=== PATIENT | female | born 1935 | race Caucasian/White ===

== ENCOUNTER 2021-10-28 12:06 | Emergency (ER) | payer MEDICARE, OTHER ==
[~2021-10-28] VITALS: Ht 172.7 cm; Wt 77.1 kg
[2021-10-28 12:42] LABS: BASOPHILS % (AUTO) 0 % (0-10); EOSINOPHILS % (AUTO) 0 % (0-10); HEMATOCRIT 49 % (35-52); HEMOGLOBIN 15.5 g/dL (11.5-16.0); LYMPHOCYTES % (AUTO) 25 % (12-44); MEAN CORPUSCULAR HEMOGLOBIN 27 pg (25-34); MEAN CORPUSCULAR HGB CONC 32 g/dL (32-36); MEAN CORPUSCULAR VOLUME 84 fL (80-99); MONOCYTES # (AUTO) 0.4 10^3/uL (0.0-1.0); MONOCYTES % (AUTO) 10 % (0-12); NEUTROPHILS # (AUTO) 2.6 10^3/uL (1.8-7.8); NEUTROPHILS % (AUTO) 63 % (42-75); PLATELET COUNT 265 10^3/uL (130-400); WHITE BLOOD COUNT 4.1 10^3/uL (4.3-11.0)
--- NOTE | 2021-10-28 12:43 | ED General ---
General Stated Complaint: NOT TALKING X 1 WK/WEAKNESS/COUGH Source of Information: Patient Exam Limitations: No Limitations History of Present Illness Date Seen by Provider: Oct 28, 2021 Time Seen by Provider: 12:28 Initial Comments Here with report of weakness, multiple falls over the last couple of weeks not talking as much to her granddaughter is difficult. She lives with her son who has advanced cancer and is on hospice. Her son is unable to care for her anymore due to this. Patient is not eating or drinking well. She is talking with the nurse and answering questions but seems confused. She does seem very weak. Patient is very poor historian due to current condition. Timing/Duration: Other (2 weeks) Severity: Moderate Associated Systoms: No Nausea/Vomiting, No Weakness Allergies and Home Medications Allergies Coded Allergies: No Known Drug Allergies (Unverified , 10/28/21) Patient Home Medication List Home Medication List Reviewed: Yes Review of Systems Review of Systems Constitutional: see HPI; No chills, No fever EENTM: No nose congestion, No throat pain Respiratory: cough, short of breath Skin: change in color; No lesions Psychiatric/Neurological: Weakness Unable to complete review of systems due to altered mental status. All Other Systems Reviewed Negative Unless Noted: Yes Past Kfjyahr-Evzoac-Lqqmpp Hx Patient Social History Tobacco Use?: No Substance use?: No Alcohol Use?: No Past Medical History Surgeries: No Family denies other medical problems and she is on no medicine and does not follow with a doctor. Physical Exam-Suspected Sepsis Physical Exam Vital Signs Vital Signs - First Documented 10/28/21 12:15 Temp 36.2 Pulse 84 Resp 16 B/P (MAP) 132/71 (91) Pulse Ox 94 O2 Delivery Room Air Capillary Refill : Height, Weight, BMI Height: '" Weight: lbs. oz. kg; BMI Method: General Appearance: No Apparent Distress, Other (Weak appearing) HEENT: PERRL/EOMI, Pharynx Normal, Other (Bruising to the right cheek and forehead) Neck: Non Tender, Supple Respiratory: No Accessory Muscle Use, Crackles (Bilateral bases) Cardiovascular: Regular Rate, Rhythm, No Murmur Gastrointestinal: Non Tender, Soft Back: Normal Inspection, No CVA Tenderness, No Vertebral Tenderness Extremity: Normal Range of Motion, Non Tender, Pelvis Stable, Other (Bruising right shoulder buttocks) Neurologic/Psychiatric: Alert, Other (Weak but answers some questions and follows simple commands) Skin: warm/dry, ecchymosis (Face, right shoulder, right upper arm and buttocks) Focused Exam Lactate Level 10/28/21 12:30: Lactic Acid Level 1.01 Lactic Acid Level Progress/Results/Core Measures Suspected Sepsis SIRS Temperature: Pulse: Respiratory Rate: Laboratory Tests 10/28/21 12:30: White Blood Count 4.1L Blood Pressure / Mean: 10/28/21 12:30: Lactic Acid Level 1.01 Laboratory Tests 10/28/21 12:30: Creatinine 0.80, INR Comment 0.9, Platelet Count 265, Total Bilirubin 0.9 Results/Orders Lab Results Laboratory Tests Test 10/28/21 12:30 10/28/21 12:48 10/28/21 13:01 Range/Units White Blood Count 4.1 L 4.3-11.0 10^3/uL Red Blood Count 5.80 H 3.80-5.11 10^6/uL Hemoglobin 15.5 11.5-16.0 g/dL Hematocrit 49 35-52 % Mean Corpuscular Volume 84 80-99 fL Mean Corpuscular Hemoglobin 27 25-34 pg Mean Corpuscular Hemoglobin Concent 32 32-36 g/dL Red Cell Distribution Width 14.4 10.0-14.5 % Platelet Count 265 130-400 10^3/uL Mean Platelet Volume 9.0 9.0-12.2 fL Immature Granulocyte % (Auto) 1 % Neutrophils (%) (Auto) 63 42-75 % Lymphocytes (%) (Auto) 25 12-44 % Monocytes (%) (Auto) 10 0-12 % Eosinophils (%) (Auto) 0 0-10 % Basophils (%) (Auto) 0 0-10 % Neutrophils # (Auto) 2.6 1.8-7.8 10^3/uL Lymphocytes # (Auto) 1.0 1.0-4.0 10^3/uL Monocytes # (Auto) 0.4 0.0-1.0 10^3/uL Eosinophils # (Auto) 0.0 0.0-0.3 10^3/uL Basophils # (Auto) 0.0 0.0-0.1 10^3/uL Immature Granulocyte # (Auto) 0.0 0.0-0.1 10^3/uL Prothrombin Time 12.9 12.2-14.7 SEC INR Comment 0.9 0.8-1.4 Activated Partial Thromboplast Time 31 24-35 SEC Sodium Level 137 135-145 MMOL/L Potassium Level 4.6 3.6-5.0 MMOL/L Chloride Level 102 98-107 MMOL/L Carbon Dioxide Level 25 21-32 MMOL/L Anion Gap 10 5-14 MMOL/L Blood Urea Nitrogen 19 H 7-18 MG/DL Creatinine 0.80 0.60-1.30 MG/DL Estimat Glomerular Filtration Rate 71 BUN/Creatinine Ratio 24 Glucose Level 96 70-105 MG/DL Lactic Acid Level 1.01 0.50-2.00 MMOL/L Calcium Level 9.1 8.5-10.1 MG/DL Corrected Calcium 9.4 8.5-10.1 MG/DL Total Bilirubin 0.9 0.1-1.0 MG/DL Aspartate Amino Transf (AST/SGOT) 43 H 5-34 U/L Alanine Aminotransferase (ALT/SGPT) 16 0-55 U/L Alkaline Phosphatase 96 40-136 U/L C-Reactive Protein High Sensitivity 2.05 H 0.00-0.50 MG/DL Total Protein 7.1 6.4-8.2 GM/DL Albumin 3.6 3.2-4.5 GM/DL Procalcitonin 0.08 <0.10 NG/ML Urine Color ORANGE Urine Clarity SL CLOUDY Urine pH 6.0 5-9 Urine Specific [place] 1.015 L 1.016-1.022 Urine Protein TRACE H NEGATIVE Urine Glucose (UA) NEGATIVE NEGATIVE Urine Ketones NEGATIVE NEGATIVE Urine Nitrite NEGATIVE NEGATIVE Urine Bilirubin 1+ H NEGATIVE Urine Urobilinogen 4.0 < = 1.0 MG/DL Urine Leukocyte Esterase NEGATIVE NEGATIVE Urine RBC (Auto) NEGATIVE NEGATIVE Urine RBC NONE /HPF Urine WBC RARE /HPF Urine Squamous Epithelial Cells 0-2 /HPF Urine Crystals NONE /LPF Urine Bacteria TRACE /HPF Urine Casts NONE /LPF Urine Mucus NEGATIVE /LPF Urine Culture Indicated CULTURE PENDING Influenza Type A (RT-PCR) Not Detected Not Detecte Influenza Type B (RT-PCR) Not Detected Not Detecte SARS-CoV-2 RNA (RT-PCR) Detected H Not Detecte My Orders Orders - ARTURO YAÑEZ MD Cbc With Automated Diff (10/28/21 12:26) Comprehensive Metabolic Panel (10/28/21 12:26) Blood Culture (10/28/21 12:) Sputum Culture (10/28/21:) Urinalysis (10/28/21:) Urine Culture (10/28/21:) Protime With Inr (10/28/21 12:) Partial Thromboplastin Time (10/28/21 12:) Chest 1 View, Ap/Pa Only (10/28/21 12:) Ed Iv/Invasive Line Start (10/28/21 12:) Vital Signs Adult Sepsis Patie Q15M (10/28/21 12:26) O2 (10/28/21:) Remove Rings In Anticipation O (10/28/21:) Lactic Acid Analyzer (10/28/21:) Influenza A And B By Pcr (10/28/21:) Procalcitonin (Pct) (10/28/21:) Hs C Reactive Protein (10/28/21:) Ct Head/Face/Cervical Wo (10/28/21 12:43) Humerus, Right, 2 Views (10/28/21 12:43) Pelvis (10/28/21 12:43) Covid 19 Inhouse Test (10/28/21 12:56) Ns Iv 500 Ml (Sodium Chloride 0.9%) (10/28/21 15:00) Medications Given in ED Current Medications Medications Dose Ordered Sig/Charissa Route Start Time Stop Time Status Last Admin Dose Admin Sodium Chloride 500 ml @ 0 mls/hr Q0M ONCE IV 10/28/21 15:00 10/28/21 15:01 DC 10/28/21 15:03 0 MLS/HR Vital Signs/I&O 10/28/21 12:15 Temp 36.2 Pulse 84 Resp 16 B/P (MAP) 132/71 (91) Pulse Ox 94 O2 Delivery Room Air Capillary Refill : Progress Note : Progress Note Seen and evaluated. Patient is weak but answering questions. Given concerns about falls we will get CT of the head, face and neck as well as get x-ray of the chest, right humerus and pelvis. We will go ahead and initiate sepsis order set was there is some concerns related to significant cough. Normal saline 500 mL bolus. Monitor patient. 1319: Patient tolerating fluids okay. Montero catheter placed and UA obtained. 1405: Patient found to be Covid positive with chest x-ray findings consistent with Covid. Unsure onset of infection but likely at least 7 days ago. Out of window for oral therapy. IV therapy unavailable. 1730: We have asked the palliative care team to see patient and family. Apparently patient's is due to be on hospice but we do not know which organization. After long discussion with the family by palliative care team they were able to get referral out to [facility] and they will see the patient at home as well as her son. I did discuss all of this with the patient's granddaughter and other family member. They are in agreement. I did let them know that the Covid infection is likely going to get worse and may result in patient's but the hospice team would be able to keep her comfortable and help them through the process. They are in agreement with that. Discharged back to home with hospice consult. Family verbalized understanding of instructions and agreement with plan. Diagnostic Imaging Diagonstic Imaging: CT Plain Films/CT/US/NM/MRI: facial bones, c-spine, head Comments [facility], [place] NAME: JACKIE GEE [facility] REC#: [id number] PT STATUS: REG ER : 1935 PHYSICIAN: ARTURO YAÑEZ MD ADMIT DATE: 10/28/21/ER Draft Date of Exam:10/28/21 CT HEAD/FACE/CERVICAL WO PROCEDURE: CT head, face, and cervical spine without contrast. TECHNIQUE: Multiple contiguous axial images were obtained through the head, neck, and facial bones without the use of intravenous contrast. Sagittal and coronal reformations through the cervical spine and facial bones were also performed. Auto Exposure Controls were utilized during the CT exam to meet ALARA standards for radiation dose reduction. INDICATION: Fall. Head and neck pain. Facial pain. COMPARISON: None. FINDINGS: CT head: No large acute territorial ischemia, mass, or hemorrhage. No midline shift or mass effect. 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 Decreased attenuation is seen in the periventricular and subcortical white matter. The ventricles and cortical sulci are prominent. The basilar cisterns are patent and unremarkable. The calvarium is intact. CT face: No acute facial fractures are visualized. The mandible, zygomatic arches, and pterygoid plates are intact. The bilateral TMJ demonstrate normal articulation. No nasal bone fractures. The bony nasal septum is midline without fracture. The paranasal sinuses and mastoid air cells are well pneumatized. The globes and orbits are symmetric and unremarkable. No evidence of orbital rim fracture. CT cervical spine: No acute fracture or dislocation is seen in the cervical spine. No focal osseous lesions. Vertebral body heights are well-maintained. The craniocervical junction is well-maintained. Moderate degenerative changes are seen in the cervical spine. Soft tissues of the neck are unremarkable. The included lung apices are clear. IMPRESSION: 1. No hemorrhage or focal intra-axial mass. No CT evidence of large acute territorial ischemia. 2. No acute fracture or dislocation in the cervical spine. 3. No acute facial fractures. Dictated on workstation # [id number] Dict: 10/28/21 1319 Trans: 10/28/21 1329 [id number] Interpreted by: CINTIA ROD DO Electronically signed by: Cristopher Imaging: Xray Plain Films/CT/US/NM/MRI: chest Comments [facility], [place] NAME: JACKIE GEE [facility] REC#: [id number] PT STATUS: REG ER : 1935 PHYSICIAN: ARTURO YAÑEZ MD ADMIT DATE: 10/28/21/ER Draft Date of Exam:10/28/21 CHEST 1 VIEW, AP/PA ONLY INDICATION: Weakness. Falls. Cough. COMPARISON: None. FINDINGS: Single frontal radiographic view of the chest was obtained and demonstrates scattered patchy airspace opacities throughout both lungs. No large effusion or pneumothorax is seen. Cardiac silhouette and pulmonary vasculature are within normal limits. Sternotomy wires are noted. Osseous structures show no gross acute abnormalities. There is calcified aortic atherosclerosis. IMPRESSION: 1. Bilateral scattered patchy infiltrate. Correlation with COVID-19 status is recommended. Dictated on workstation # [id number] Dict: 10/28/21 1345 Trans: 10/28/21 1347 [id number] Interpreted by: JACKIE MCKENZIE MD Electronically signed by: Diagonstic Imaging: Xray Plain Films/CT/US/NM/MRI: other Comments [facility] [place] [place] NAME: JACKIE GEE [facility] REC#: [id number] PT STATUS: REG ER : 1935 PHYSICIAN: ARTURO YAÑEZ MD ADMIT DATE: 10/28/21/ER Draft Date of Exam:10/28/21 HUMERUS, RIGHT, 2 VIEWS INDICATION: Fall. Pain. COMPARISON: None. FINDINGS: Two views of the right humerus were obtained and show no fractures, dislocations, or other acute bony abnormalities. Joint spaces are well maintained throughout. Note is made of advanced narrowed appearance to the acromiohumeral joint space. The soft tissues appear unremarkable. No radiopaque foreign bodies are identified. IMPRESSION: 1. No acute fracture or dislocation of right humerus. 2. Advanced narrowing of the acromiohumeral joint space. Findings can be seen with chronic rotator cuff tear. Dictated on workstation # [id number] Dict: 10/28/21 1346 Trans: 10/28/21 1349 [facility] [id number] Interpreted by: JACKIE MCKENZIE MD Electronically signed by: Elizabethgonstic Imaging: Xray Plain Films/CT/US/NM/MRI: pelvis Comments [facility] [place] [place] NAME: JACKIE GEE [facility] REC#: [id number] PT STATUS: REG ER : 1935 PHYSICIAN: ARTURO YAÑEZ MD ADMIT DATE: 10/28/21/ER Draft Date of Exam:10/28/21 PELVIS PELVIS INDICATION: Pelvic pain. COMPARISON: None available. TECHNIQUE: Single AP view of the pelvis. FINDINGS: No displaced fracture within the visualized portions of the pelvis or proximal femurs. Assessment of the sacrum and coccyx is suboptimal due to overlying bowel gas and stool. 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 Surgical clips are noted at the left lower quadrant. IMPRESSION: No displaced fracture or traumatic malalignment by radiography. Dictated on workstation # [id number] Dict: 10/28/21 1346 Trans: 10/28/21 1350 [id number] Interpreted by: CHICHO SAWANT MD Electronically signed by: Departure Impression Primary Impression: Pneumonia due to COVID-19 virus Disposition: 01 HOME, SELF-CARE Condition: Stable Departure-Patient Inst. Decision time for Depature: 17:32 Referrals: NO,LOCAL PHYSICIAN (PCP/Family) Primary Care Physician Patient Instructions: COVID-19 (DC) Add. Discharge Instructions: The hospice team will contact you at home and initiate home hospice and palliative care. She may eat or drink as desired. Follow direction of hospice team. You may call [facility] at [phone]. Return for other concerns as needed. ARTURO YAÑEZ MD Oct 28, 2021 12:43
[2021-10-28 12:53] LABS: CLARITY,URINE SL CLOUDY; COLOR,URINE ORANGE; GLUCOSE, URINE (UA) NEGATIVE (NEGATIVE); KETONES,URINE NEGATIVE (NEGATIVE); LEUKOCYTE ESTERASE ,URINE NEGATIVE (NEGATIVE); NITRITE,URINE NEGATIVE (NEGATIVE); PROTEIN,URINE TRACE (NEGATIVE)
[2021-10-28 12:54] LABS: INR 0.9 (0.8-1.4); PROTHROMBIN TIME PATIENT 12.9 SEC (12.2-14.7)
[2021-10-28 13:01] LABS: ALBUMIN 3.6 GM/DL (3.2-4.5); POTASSIUM 4.6 MMOL/L (3.6-5.0)
[2021-10-28 13:03] LABS: CALCIUM 9.1 MG/DL (8.5-10.1)
[2021-10-28 13:04] LABS: TOTAL PROTEIN 7.1 GM/DL (6.4-8.2)
[2021-10-28 13:06] LABS: BILIRUBIN,TOTAL 0.9 MG/DL (0.1-1.0)
[2021-10-28 13:07] LABS: BACTERIA,URINE TRACE /HPF; BILIRUBIN,URINE 1+ (NEGATIVE); SQUAMOUS EPITHELIAL CELL,UR 0-2 /HPF; WBC,URINE RARE /HPF
[2021-10-28 13:08] LABS: CREATININE SERUM 0.8 MG/DL (0.60-1.30)
--- NOTE | 2021-10-28 13:30 | Diagnostic Imaging Report ---
PROCEDURE: CT head, face, and cervical spine without contrast. TECHNIQUE: Multiple contiguous axial images were obtained through the head, neck, and facial bones without the use of intravenous contrast. Sagittal and coronal reformations through the cervical spine and facial bones were also performed. Auto Exposure Controls were utilized during the CT exam to meet ALARA standards for radiation dose reduction. INDICATION: Fall. Head and neck pain. Facial pain. COMPARISON: None. FINDINGS: CT head: No large acute territorial ischemia, mass, or hemorrhage. No midline shift or mass effect. 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 Decreased attenuation is seen in the periventricular and subcortical white matter. The ventricles and cortical sulci are prominent. The basilar cisterns are patent and unremarkable. The calvarium is intact. CT face: No acute facial fractures are visualized. The mandible, zygomatic arches, and pterygoid plates are intact. The bilateral TMJ demonstrate normal articulation. No nasal bone fractures. The bony nasal septum is midline without fracture. The paranasal sinuses and mastoid air cells are well pneumatized. The globes and orbits are symmetric and unremarkable. No evidence of orbital rim fracture. CT cervical spine: No acute fracture or dislocation is seen in the cervical spine. No focal osseous lesions. Vertebral body heights are well-maintained. The craniocervical junction is well-maintained. Moderate degenerative changes are seen in the cervical spine. Soft tissues of the neck are unremarkable. The included lung apices are clear. IMPRESSION: 1. No hemorrhage or focal intra-axial mass. No CT evidence of large acute territorial ischemia. 2. No acute fracture or dislocation in the cervical spine. 3. No acute facial fractures. Dictated by: Dictated on workstation # [id number]
--- NOTE | 2021-10-28 13:48 | Diagnostic Imaging Report ---
INDICATION: Weakness. Falls. Cough. COMPARISON: None. FINDINGS: Single frontal radiographic view of the chest was obtained and demonstrates scattered patchy airspace opacities throughout both lungs. No large effusion or pneumothorax is seen. Cardiac silhouette and pulmonary vasculature are within normal limits. Sternotomy wires are noted. Osseous structures show no gross acute abnormalities. There is calcified aortic atherosclerosis. IMPRESSION: 1. Bilateral scattered patchy infiltrate. Correlation with COVID-19 status is recommended. Dictated by: Dictated on workstation # [id number]
--- NOTE | 2021-10-28 13:50 | Diagnostic Imaging Report ---
INDICATION: Fall. Pain. COMPARISON: None. FINDINGS: Two views of the right humerus were obtained and show no fractures, dislocations, or other acute bony abnormalities. Joint spaces are well maintained throughout. Note is made of advanced narrowed appearance to the acromiohumeral joint space. The soft tissues appear unremarkable. No radiopaque foreign bodies are identified. IMPRESSION: 1. No acute fracture or dislocation of right humerus. 2. Advanced narrowing of the acromiohumeral joint space. Findings can be seen with chronic rotator cuff tear. Dictated by: Dictated on workstation # [id number]
--- NOTE | 2021-10-28 13:50 | Diagnostic Imaging Report ---
PELVIS INDICATION: Pelvic pain. COMPARISON: None available. TECHNIQUE: Single AP view of the pelvis. FINDINGS: No displaced fracture within the visualized portions of the pelvis or proximal femurs. Assessment of the sacrum and coccyx is suboptimal due to overlying bowel gas and stool. 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 Surgical clips are noted at the left lower quadrant. IMPRESSION: No displaced fracture or traumatic malalignment by radiography. Dictated by: Dictated on workstation # [id number]
[2021-10-28] MEDS ORDERED: NS IV 500 ML 500 ML IV ONE (15:00)
[2021-10-28 18:12] VITALS: BP 159/99
== END 2021-10-28 18:12 | disposition home or self-care (01) ==
LOC: EDUNIT# 12:06 → ER 12:09
DX: U07.1 COVID-19 (principal); J12.82 Pneumonia due to coronavirus disease 2019; S00.83XA Contusion of other part of head, initial encounter; S40.011A Contusion of right shoulder, initial encounter; S40.021A Contusion of right upper arm, initial encounter; S30.0XXA Contusion of lower back and pelvis, initial encounter; W19.XXXA Unspecified fall, initial encounter
CPT/HCPCS: 36415; 51702; 70450; 70486; 71045; 72125; 72170; 73060; 80053; 81000; 83605; 84145; 85025; 85610; 85730; 86141; 87040; 87088; 87636